=== PATIENT | female | born 2000 | race African-American/Black ===

== ENCOUNTER 2023-11-16 17:34 | Emergency (ER) | payer MEDICAID ==
[~2023-11-16] VITALS: Ht 162.6 cm; Wt 54.0 kg
[2023-11-16 17:57] VITALS: BP 121/86; PULSE 68; RESP 20; TEMP 98.4; O2SAT 100
[2023-11-16] MEDS ORDERED: DOXY100T28 MT (18:07)
[2023-11-16] MEDS ORDERED: DOXYCYCLINE HYCLATE 100MG CAPSULE PO ONE (18:15)
[2023-11-16] MEDS ORDERED: CEFTRIAXONE SODIUM 500 MG/VIAL IM ONE (18:15)
[2023-11-16] MEDS ORDERED: DOXYCYCLINE HYCLATE 100MG CAPSULE PO NR (21:00)
[2023-11-16] MEDS ORDERED: CEFTRIAXONE SODIUM 500 MG/VIAL IM NR (21:00)
[2023-11-19 10:12] LABS: CHLAMYDIA TRACHOMATIS NAA Negative (Negative); NEISSERIA GONORRHOEAE NAA Negative (Negative)
== END 2023-11-16 21:30 | disposition home or self-care (01) ==
LOC: ER 17:34
DX: A64 Unspecified sexually transmitted disease (principal)
CPT/HCPCS: 87491; 87591; 99283; J0696; Z7610 ×2

== ENCOUNTER 2024-04-08 20:57 | Emergency (ER) | payer MEDICAID ==
[~2024-04-08] VITALS: Ht 157.5 cm; Wt 58.0 kg
[~2024-04-08 20:57] MED LIST: DOXY100T28 MT; DOXY150T9 MT; METR375C2 PO
[2024-04-08 21:28] VITALS: BP 122/78; PULSE 78; RESP 16; TEMP 98.7; O2SAT 100
[2024-04-09] MEDS ORDERED: CLOT15CR5 TP (01:21)
[2024-04-09] MEDS ORDERED: IBUP-2029 MT (01:21)
== END 2024-04-09 02:52 | disposition home or self-care (01) ==
LOC: ER 20:57
DX: S00.83XA Contusion of other part of head, initial encounter (principal); R21 Rash and other nonspecific skin eruption; Z79.899 Other long term (current) drug therapy; X58.XXXA Exposure to other specified factors, initial encounter; Y93.89 Activity, other specified; Y92.89 Other specified places as the place of occurrence of the external cause; Y99.8 Other external cause status
CPT/HCPCS: 70486; 99284